=== PATIENT | female | born 1995 | race American Indian/Alaskan Native ===

== ENCOUNTER 2017-10-18 18:12 | Emergency (ER) | payer OTHER ==
[2017-10-18] MEDS ORDERED: MOTRIN PO ONE (18:35)
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
[2017-10-18 19:08] VITALS: BP 126/80
== END 2017-10-18 19:07 | disposition home or self-care (01) ==
LOC: ED 18:12
DX: S16.1XXA Strain of muscle, fascia and tendon at neck level, initial encounter (principal); S39.012A Strain of muscle, fascia and tendon of lower back, initial encounter; S80.02XA Contusion of left knee, initial encounter; S80.01XA Contusion of right knee, initial encounter; V89.2XXA Person injured in unspecified motor-vehicle accident, traffic, initial encounter; Y93.89 Activity, other specified; Y92.89 Other specified places as the place of occurrence of the external cause; Y99.8 Other external cause status
CPT/HCPCS: 99282